=== PATIENT | male | born 1940 ===

== ENCOUNTER 2023-02-19 09:14 | Day surgery (SDC) | payer MEDICARE, BC ==
[2023-02-19] MEDS ORDERED: NO HOME MEDS (09:33)
[2023-02-19 10:53] VITALS: BP 167/96; PULSE 107; RESP 16; TEMP 98.2; O2SAT 96
[2023-02-19 12:58] VITALS: BP 136/93; PULSE 100; RESP 16; O2SAT 97
== END 2023-02-19 10:45 | disposition home or self-care (01) ==
LOC: SSTAY O 09:14
PROVIDERS: ATTEND Radiology Vascular & Interventional Radiology
DX: J90 Pleural effusion, not elsewhere classified (principal); Z53.8 Procedure and treatment not carried out for other reasons; I25.10 Atherosclerotic heart disease of native coronary artery without angina pectoris; Z95.5 Presence of coronary angioplasty implant and graft; Z98.890 Other specified postprocedural states; Z87.11 Personal history of peptic ulcer disease
CPT/HCPCS: 76604